=== PATIENT | male | born 1995 | race Caucasian/White ===

== ENCOUNTER 2022-01-26 09:24 | Observation (INO) ==
[2022-01-26] MEDS ORDERED: SODIUM CHLORIDE 0.9% 1000ML 2,000 ML IV ONE (09:50)
--- NOTE | 2022-01-26 09:50 | Emergency Department Note ---
Impression & Plan Elevated transaminase level, Hyperbilirubinemia, Nausea, History of COVID-19 ED Provider Note NAME: ANA CRISTINA MCGINNIS AGE: 26 SEX: M : 1995 ARRIVES VIA: Walk-In INFORMANT: Patient ED PROVIDER(S): Asim Paiz DO CHIEF COMPLAINT: Liver functions elevated HPI: Patient is a 26-year-old male who had COVID over 2 weeks ago. He was still feeling fairly rundown and consequently he followed up with [facility]. Still having the same symptoms he had with COVID which was chills, sweats, and myalgias. He symptoms have now abated several days ago. He returned yesterday and had blood work done and showed an elevated liver functions and consequently he was referred in. He denies any headache or fevers. No chest pain or shortness of breath. Cough has now abated. He denies any belly pain but admits to some nausea. No dysuria, urgency, or frequency. He notes he took 1 dose of Tylenol this morning but has not taken any for several days. He was not using excessive amount of Tylenol. No diarrhea. No other exacerbating or remitting factors. He did have a rash the other day which was itchy and red but abated fairly quickly. ROS: See above HPI for pertinent positives & negatives. A total of 10 systems reviewed and were otherwise negative. PAST MEDICAL HISTORY:See Below PAST SURGICAL HISTORY:See Below FAMILY HISTORY:See Below SOCIAL HISTORY:See Below HOME MEDICATIONS:See Below ALLERGIES:See Below VITALS:See Below PHYSICAL EXAMINATION: GENERAL: Sitting up in bed, alert, well appearing, well nourished, no distress, non-toxic EYE EXAM: normal conjunctiva. PERRL and EOM's grossly intact. OROPHARYNX: mucous membranes are moist LUNGS: Clear to auscultation. Normal chest wall mechanics HEART: no murmurs, S1 normal and S2 normal ABDOMEN: abdomen soft, non-tender, normo-active bowel sounds, no masses, no rebound or guarding. BACK: Back is symmetrical on inspection and there is no deformity, no midline tenderness, no CVA tenderness. SKIN: no rashes and no bruising UPPER EXTREMITIES: upper extremities are grossly normal. LOWER EXTREMITIES: No pitting edema. NEURO EXAM: Normal sensorium, cranial nerves II-XII grossly intact, normal s peech, no gross weakness of arms, no gross weakness of legs. MEDICAL DECISION MAKING: Patient is a 26-year-old male who presents the ER for elevated bilirubin and LFTs. He was referred in from [facility]. IV was established blood work was obtained. Show mild leukocytosis of 13,000. No significant anemia. BMP along with LFTs bilirubin was remarkable for an AST of 222, and ALT of 458, direct bili of 1.7 T bili of 2.6. Lipase was neg along with UA. Hooker was negative. COVID was negative. Ultrasound was unremarkable. Patient was updated bedside discussed with hospitalist Char for further evaluation. Triage Nursing notes reviewed. Limited review of prior medical records performed Vital Signs: reviewed and remarkable for HTN and tachy Differential diagnosis: Differential diagnoses includes but is not limited to gastritis, peptic ulcer disease, GERD, gallbladder disease, pancreatitis, small bowel obstruction, acute coronary syndrome, pericarditis, ischemic bowel, irritable bowel disease, irritable bowel syndrome, appendicitis, diverticulitis, malignancy, hernia, urinary tract infection, torsion, perforation, trauma, infectious. ER treatment provided: See below Diagnostics interpreted by me: ECG: none Cardiac Monitoring: An order was placed for continuous cardiac monitoring. The monitor shows a rate of 90 with sinus rhythm. Laboratory studies: As stated above and show below. Imaging studies: Ultrasound was unremarkable Consultation(s): Discussed with Char Jeff for further evaluation Procedures: none Critical Care: None Past Med/Surg History Social History Smoking Status: Never smoker Preferred Language: Lao Feels Safe at Home: Yes Allergies Allergies Allergy/AdvReac Type Severity Reaction Status Date / Time No Known Allergies Allergy Unverified 01/26/22 12:25 Home Meds Home Medications Medication Instructions Recorded Confirmed loratadine 10 mg tablet 10 mg PO DAILY 01/26/22 01/26/22 Results & Data (ED) Vital Signs Vital Signs - 24 hr 01/26/22 09:24 01/26/22 09:40 01/26/22 09:47 Temperature 36.3 C L Temperature Source Temporal Artery Scan Pulse Rate 103 H 84 Pulse Rate [Finger] 87 Respiratory Rate 18 20 18 Respiratory Effort / Characteristics Non-Labored Respiratory Depth Normal Blood Pressure 144/92 H Blood Pressure [Left Arm] 144/96 H Blood Pressure Mean 109 Blood Pressure Mean [Left Arm] 112 Pulse Oximetry 97 98 97 Oxygen Delivery Method Room Air Sepsis Recent Fever Within 48 Hours No Sepsis New/Unexplained Change in Mental Status No Sepsis Action Taken by Nursing No Action Required 01/26/22 12:19 Temperature Temperature Source Pulse Rate Pulse Rate [Finger] 95 H Respiratory Rate 18 Respiratory Effort / Characteristics Respiratory Depth Blood Pressure Blood Pressure [Left Arm] 144/94 H Blood Pressure Mean Blood Pressure Mean [Left Arm] 110 Pulse Oximetry 99 Oxygen Delivery Method Sepsis Recent Fever Within 48 Hours Sepsis New/Unexplained Change in Mental Status Sepsis Action Taken by Nursing Laboratory Data Result diagrams: 01/26/22 09:55 01/26/22 09:55 Lab Results 01/26/22 01/26/22 01/26/22 Range/Units 09:55 09:55 09:55 WBC 13.63 H (4.8-10.8) K/uL RBC 4.73 (4.7-6.1) M/uL Hgb 15.3 (14.0-18.0) g/dL Hct 43.1 (42-52) % MCV 91.1 (80-100) fL MCH 32.3 (25-34) pg MCHC 35.5 (32-36) g/dL RDW Std Deviation 44.0 (36.4-46.3) fL RDW Coeff of Minnie 13.1 (11.5-14.5) % Plt Count 155 (130-400) K/uL MPV 10.8 H (7.4-10.4) fL Neutrophils % (Manual) 15.5 % Lymphocytes % (Manual) 10.3 % Reactive Lymphs % (Man) 72.5 % Monocytes % (Manual) 1.7 % Neutrophils # (Manual) 2.11 (1.4-6.5) K/uL Total Absolute Neuts 2.11 (1.4-6.5) K/uL Lymphocytes # (Manual) 1.40 (1.2-3.4) K/uL Reactive Lymphs # 9.88 K/uL Total Abs Lymphocytes 11.29 H (1.2-3.4) K/uL Monocytes # (Manual) 0.23 (0.11-0.59) K/uL Sodium 140 (136-145) mmol/L Potassium 4.0 (3.5-5.1) mmol/L Chloride 105 (98-107) mmol/L Carbon Dioxide 27 (21-32) mmol/L Anion Gap 8 (3-11) BUN 8 (6-23) mg/dl Creatinine 0.81 (0.6-1.4) mg/dl Est Cr Clr Drug Dosing 150.4 ml/min Est GFR ( Amer) 141.2 ml/min Est GFR (Non-Af Amer) 121.8 ml/min BUN/Creatinine Ratio 9.9 L (10-20) Glucose 99 (70-99(Fasting)) mg/dl Calcium 9.6 (8.5-10.1) mg/dl Total Bilirubin 2.6 H (0.2-1.0) mg/dl Direct Bilirubin (0-0.2) mg/dl AST 222 H (13-39) U/L ALT 458 H (7-52) U/L Alkaline Phosphatase 165 H (34-104) U/L Total Creatine Kinase (30-223) U/L Total Protein 7.8 (6.0-8.3) gm/dl Albumin 4.2 (3.4-5.0) gm/dl Globulin 3.6 (2.5-4.0) gm/dl Albumin/Globulin Ratio 1.2 (0.9-2) Lipase 28 (11-82) U/L Urine Color Urine Appearance (Clear) Urine pH (4.5-7.5) Ur Specific [place] (1.000-1.030) Urine Protein (Negative) Urine Glucose (UA) (Negative) Urine Ketones (Negative) Urine Blood (Negative) Urine Nitrite (Negative) Urine Bilirubin (Negative) Urine Urobilinogen (Negative) Ur Leukocyte Esterase (Negative) Lyme Disease IgG Ab Negative (Negative) Lyme Disease IgM Ab Negative (Negative) Monoscreen Negative (Negative) SARS-CoV-2, RNA, NAAT (NEGATIVE) 01/26/22 01/26/22 01/26/22 Range/Units 09:55 11:05 12:01 WBC (4.8-10.8) K/uL RBC (4.7-6.1) M/uL Hgb (14.0-18.0) g/dL Hct (42-52) % MCV (80-100) fL MCH (25-34) pg MCHC (32-36) g/dL RDW Std Deviation (36.4-46.3) fL RDW Coeff of Minnie (11.5-14.5) % Plt Count (130-400) K/uL MPV (7.4-10.4) fL Neutrophils % (Manual) % Lymphocytes % (Manual) % Reactive Lymphs % (Man) % Monocytes % (Manual) % Neutrophils # (Manual) (1.4-6.5) K/uL Total Absolute Neuts (1.4-6.5) K/uL Lymphocytes # (Manual) (1.2-3.4) K/uL Reactive Lymphs # K/uL Total Abs Lymphocytes (1.2-3.4) K/uL Monocytes # (Manual) (0.11-0.59) K/uL Sodium (136-145) mmol/L Potassium (3.5-5.1) mmol/L Chloride (98-107) mmol/L Carbon Dioxide (21-32) mmol/L Anion Gap (3-11) BUN (6-23) mg/dl Creatinine (0.6-1.4) mg/dl Est Cr Clr Drug Dosing ml/min Est GFR ( Amer) ml/min Est GFR (Non-Af Amer) ml/min BUN/Creatinine Ratio (10-20) Glucose (70-99(Fasting)) mg/dl Calcium (8.5-10.1) mg/dl Total Bilirubin 2.6 H (0.2-1.0) mg/dl Direct Bilirubin 1.7 H (0-0.2) mg/dl AST (13-39) U/L ALT (7-52) U/L Alkaline Phosphatase (34-104) U/L Total Creatine Kinase 52 (30-223) U/L Total Protein (6.0-8.3) gm/dl Albumin (3.4-5.0) gm/dl Globulin (2.5-4.0) gm/dl Albumin/Globulin Ratio (0.9-2) Lipase (11-82) U/L Urine Color Dark Yellow Urine Appearance Clear (Clear) Urine pH 7.0 (4.5-7.5) Ur Specific [place] 1.007 (1.000-1.030) Urine Protein Negative (Negative) Urine Glucose (UA) Negative (Negative) Urine Ketones Negative (Negative) Urine Blood Negative (Negative) Urine Nitrite Negative (Negative) Urine Bilirubin Negative (Negative) Urine Urobilinogen Negative (Negative) Ur Leukocyte Esterase Negative (Negative) Lyme Disease IgG Ab (Negative) Lyme Disease IgM Ab (Negative) Monoscreen (Negative) SARS-CoV-2, RNA, NAAT NEGATIVE (NEGATIVE) Administered Medications Discontinued Medications Sodium Chloride (Nss 1000ml) 2,000 mls @ 999 mls/hr IV .Q2H1M ONE Stop: 01/26/22 11:50 Last Infusion: 01/26/22 12:47 Dose: 0 mls/hr Documented by: [id number] Admin: 01/26/22 09:55 Dose: 999 mls/hr Documented by: [id number] Imaging Data Radiologist's Impression: Liver Ultrasound 01/26/22 09:48 US liver HISTORY: 26 years-old Male transaminitis elevated LFTs COMPARISON: None TECHNIQUE: Multiple real-time sonographic images of the abdominal right upper quadrant were obtained assessing grayscale appearance and color flow FINDINGS: The visualized pancreas is unremarkable. Heterogeneous echogenicity of the liver with areas of mildly increased echogenicity. No hepatic mass or marginal nodularity. Mildly contracted gallbladder without cholelithiasis or pericholecystic fluid. Normal common bile duct, 5 mm. Imaged right kidney is unremarkable without hydronephrosis. IMPRESSION: 1. Findings suggestive of mild geographic hepatic steatosis. 2. Normal gallbladder. 3. No biliary ductal dilation. ACT 112: Negative or not required by law. The above report was generated using voice recognition software. It may contain grammatical, syntax or spelling errors. Electronically signed by: Zachery Long M.D. 01/26/2022 10:40 AM Discharge Plan Visit Data Chief Complaint: Abnormal Labs/Diagnostic Testing Stated Complaint: ELEVATED LIVER ENZYMES ED Provider: Asim Paiz Discharge Problem: Elevated transaminase level, Hyperbilirubinemia, Nausea, History of COVID-19
[2022-01-26 10:19] LABS: Hematocrit (blood only) 43.1 % (42-52); Hemoglobin 15.3 g/dL (14.0-18.0); Mean Corpuscular Hemoglobin 32.3 pg (25-34); Mean Corpuscular Hgb Conc 35.5 g/dL (32-36); Mean Corpuscular Volume 91.1 fL (80-100); Mean Platelet Volume 10.8 fL (7.4-10.4); Platelet Count 155 K/uL (130-400); RDW Coefficient of Variation 13.1 % (11.5-14.5); Red Blood Count 4.73 M/uL (4.7-6.1); White Blood Count 13.63 K/uL (4.8-10.8)
[2022-01-26 10:39] LABS: Monotest Negative (Negative)
--- NOTE | 2022-01-26 10:41 | Ultrasound Report ---
US liver HISTORY: 26 years-old Male transaminitis elevated LFTs COMPARISON: None TECHNIQUE: Multiple real-time sonographic images of the abdominal right upper quadrant were obtained assessing grayscale appearance and color flow FINDINGS: The visualized pancreas is unremarkable. Heterogeneous echogenicity of the liver with areas of mildly increased echogenicity. No hepatic mass or marginal nodularity. Mildly contracted gallbladder withou t cholelithiasis or pericholecystic fluid. Normal common bile duct, 5 mm. Imaged right kidney is unremarkable without hydronephrosis. IMPRESSION: 1. Findings suggestive of mild geographic hepatic steatosis. 2. Normal gallbladder. 3. No biliary ductal dilation. ACT 112: Negative or not required by law. The above report was generated using voice recognition software. It may contain grammatical, syntax o r spelling errors. Electronically signed by: Zachery Long M.D. 01/26/2022 10:40 AM
[2022-01-26 10:50] LABS: ALC (manual) 11.29 K/uL (1.2-3.4); ANC (manual) 2.11 K/uL (1.4-6.5); Lymphocytes % (manual) 10.3 %; Monocytes # (manual) 0.23 K/uL (0.11-0.59); Monocytes % (manual) 1.7 %; Neutrophils # (manual) 2.11 K/uL (1.4-6.5); Neutrophils % (manual) 15.5 %; Reactive Lymphocytes # (manual) 9.88 K/uL; Reactive Lymphocytes % (manual) 72.5 %
[2022-01-26 11:03] LABS: Lyme Ab IgG w/WB Rflx Negative (Negative); Lyme Ab IgM w/WB Rflx Negative (Negative)
[2022-01-26 11:17] LABS: Appearance Urine Clear (Clear); Bilirubin Urine Negative (Negative); Blood Urine Negative (Negative); Color Urine Dark Yellow; Glucose Urine UA Negative (Negative); Ketones Urine Negative (Negative); Leukocyte Esterase Urine Negative (Negative); Nitrite Urine Negative (Negative); Protein Urine Negative (Negative); Specific Gravity Urine 1.007 (1.000-1.030); Urobilinogen Urine Negative (Negative)
[2022-01-26 11:27] LABS: Albumin Globulin Ratio 1.2 (0.9-2); Albumin Level 4.2 gm/dl (3.4-5.0); BUN Creatinine Ratio 9.9 (10-20); Bilirubin,Total 2.6 mg/dl (0.2-1.0); Calcium 9.6 mg/dl (8.5-10.1); Creatinine Clr Calc Pharmacy 150.4 ml/min; Est GFR (African American) 141.2 ml/min; Est GFR (Non-African American) 121.8 ml/min; Globulin 3.6 gm/dl (2.5-4.0); Total Protein 7.8 gm/dl (6.0-8.3)
--- NOTE | 2022-01-26 13:20 | History & Physical Report ---
Date of Service January 26, 2022 Assessment & Plan (1) Elevated transaminase level: Plan: Uncertain cause with etiologies considered but not limited to recent covid-19 infection, ESTEVEZ, viral hepatitis, recent ischemic hepatopathy that is resolving after illness? biliary obstruction (less likely with normal MRCP). HIV pending with additional evidence of a pruritic rash on check and back present for the last week. Initially pruritis was described as all over, and cholestasis was suspected. However, patient now reports itching is localized to where the rash is present. LFTs were reportedly in the 400s yesterday at urgent care center and are now in the 200s so have trended down. CK is normal, patient denies OTC (although later said he was taking tums for nausea). Acute hepatitis panel pending, monospot is negative. GI consult requested for additional workup, recommendations. (2) Hyperbilirubinemia: Plan: see plan above. Trend in am. (3) Nausea: Plan: resolved with patient reporting a headache and consistent ibuprofen use throughout the week. (4) Pruritic rash: Plan: reports ongoing for the past week. It is unclear if there is an association with LFT elevation. Benadryl PRN. (5) History of COVID-19: Plan: Symptoms began 01/14 per his report and have mostly resolved at this point. He states that if it weren't for medical staff telling him to present to the ER for abnormal lab values, he would have thought he was improved. (6) DVT prophylaxis: Plan: Lovenox Full Code Dispo-likely to home in am after GI recommendations and additional workup is complete. Char Jeff DO [facility] Hospitalist History of Present Illness Chief Complaint: abnormal labs LFTs Primary Care Provider: NO PCP The patient is a 26 yo M who recently was sick with covid two weeks ago who went to the urgent care center because of still feleing run down. He reports persistent chills, sweats, and myalgias which improved about 4 days ago. Denies GALDAMEZ, fevers, no CP, no SOB, cough has resolved, +nausea, no abd pain, took 1 dose of tylenol this am but hasn't taken any for the last few days. Denies excessive use of tylenol. no diarrhea. +rash but this went away Allergies Allergy/AdvReac Type Severity Reaction Status Date / Time No Known Allergies Allergy Unverified 01/26/22 12:25 Home Medications Medication Instructions Recorded Confirmed Type loratadine 10 mg tablet 10 mg PO DAILY 01/26/22 01/26/22 History Past Med/Surg History Medical History History of COVID-19 Surgical History H/O wisdom tooth extraction Family History (Updated 01/26/22 @ 17:14 by Char Jeff DO) Mother Prediabetes Father Hypertension Social History (Updated 01/26/22 @ 17:15 by Char Jeff DO) Smoking Status: Never smoker Hx Alcohol Use: Yes Hx Substance Use: No Preferred Language: Luxembourgish Communication Ability: Effective Webmethods Consultant Required: No Beliefs That Will Affect Care: None Current Living Situation: Alone current occupational status: employed current occupation: management Other Information That Helps Us Care for You: No Feels Safe at Home: Yes Safety Concerns: Feels Safe At This Time Assistive Devices: Contacts and Glasses Assistive Devices Comment: glasses not here; contacts in Review of Systems Review of Systems: All systems were reviewed and negative except as indicated on HPI above. Results & Data Results & Data ([facility]) Vital Signs (Past 12 Hours) Vital Signs Temp Pulse Pulse Resp BP BP Pulse Ox 01/26/22 12:19 95 H 18 144/94 H 99 01/26/22 09:47 84 18 97 01/26/22 09:40 36.3 C L 103 H 20 144/92 H 98 01/26/22 09:24 87 18 144/96 H 97 Laboratory Results Short CBC 01/26/22 Range/Units 09:55 WBC 13.63 H (4.8-10.8) K/uL Hgb 15.3 (14.0-18.0) g/dL Hct 43.1 (42-52) % Plt Count 155 (130-400) K/uL BMP 01/26/22 09:55 Sodium 140 Potassium 4.0 Chloride 105 Carbon Dioxide 27 BUN 8 Creatinine 0.81 Glucose 99 Calcium 9.6 Liver Function 01/26/22 Range/Units 09:55 Total Bilirubin 2.6 H (0.2-1.0) mg/dl AST 222 H (13-39) U/L ALT 458 H (7-52) U/L Alkaline Phosphatase 165 H (34-104) U/L Albumin 4.2 (3.4-5.0) gm/dl Urine 01/26/22 Range/Units 11:05 Urine Color Dark Yellow Urine Appearance Clear (Clear) Urine pH 7.0 (4.5-7.5) Ur Specific [place] 1.007 (1.000-1.030) Urine Protein Negative (Negative) Urine Glucose (UA) Negative (Negative) Diagnostic Findings Liver Ultrasound 01/26/22 09:48 US liver HISTORY: 26 years-old Male transaminitis elevated LFTs COMPARISON: None TECHNIQUE: Multiple real-time sonographic images of the abdominal right upper quadrant were obtained assessing grayscale appearance and color flow FINDINGS: The visualized pancreas is unremarkable. Heterogeneous echogenicity of the liver with areas of mildly increased echogenicity. No hepatic mass or marginal nodularity. Mildly contracted gallbladder without cholelithiasis or pericholecystic fluid. Normal common bile duct, 5 mm. Imaged right kidney is unremarkable without hydronephrosis. IMPRESSION: 1. Findings suggestive of mild geographic hepatic steatosis. 2. Normal gallbladder. 3. No biliary ductal dilation. ACT 112: Negative or not required by law. The above report was generated using voice recognition software. It may contain grammatical, syntax or spelling errors. Electronically signed by: Zachery Long M.D. 01/26/2022 10:40 AM Code Status & VTE Plan VTE Prophylaxis Plan VTE Prophylaxis will be ordered: Yes
--- NOTE | 2022-01-26 13:43 | Communication Note ---
Date of Service: January 26, 2022 Obtain MRCP for further evaluation of elevated lft's Check acute hepatitis panel, covid if not done.
[2022-01-26 14:28] LABS: Bilirubin Direct 1.7 mg/dl (0-0.2); Bilirubin,Total 2.6 mg/dl (0.2-1.0)
--- NOTE | 2022-01-26 14:35 | Magnetic Resonance Report ---
MR MRCP HISTORY: 26 years-old Male rule out choledocholithiasis, nausea, elev LFTs acute nausea with elevate d LFTs COMPARISON: Ultrasound of same day TECHNIQUE: MRCP was obtained without the use of IV contrast. FINDINGS: The imaged lower chest is unremarkable. The liver is mildly enlarged. Trace perisplenic free fluid. T he spleen measures up to 13.8 cm in length. Unremarkable pancreas, adrenal glands, kidneys and gallbl adder. No cholelithiasis or gallbladder wall thickening. Normal caliber of the common bile duct, 3 mm . Normal caliber of the pancreatic duct. No choledocholithiasis. IMPRESSION: 1. No cholelithiasis, biliary ductal dilation or choledocholithiasis. 2. Mild hepatosplenomegaly. 3. Trace perisplenic free fluid. ACT 112: Negative or not required by law. The above report was generated using voice recognition software. It may contain grammatical, syntax o r spelling errors. Electronically signed by: Zachery Long M.D. 01/26/2022 2:33 PM
[2022-01-26] MEDS ORDERED: ACETAMINOPHEN 325 MG TAB PO PRN (15:55)
[2022-01-26] MEDS ORDERED: ONDANSETRON INJ 2 MG/ML 2 ML VIAL IV PRN (15:55)
[2022-01-26] MEDS ORDERED: POLYETHYLENE (MIRALAX) 17 GM PACK PO PRN (15:55)
[2022-01-26] MEDS ORDERED: diphenhydrAMINE Capsule 25 MG CAP PO PRN (17:17)
[2022-01-27 06:41] LABS: Prothrombin Time 10.2 Seconds (9.0-12.0)
[2022-01-27 06:57] LABS: BUN Creatinine Ratio 10.8 (10-20); Calcium 9.3 mg/dl (8.5-10.1); Creatinine Clr Calc Pharmacy 146.7 ml/min; Est GFR (African American) 139.8 ml/min; Est GFR (Non-African American) 120.6 ml/min; Potassium 3.8 mmol/L (3.5-5.1)
[2022-01-27 07:07] LABS: Albumin Globulin Ratio 1.1 (0.9-2); Albumin Level 3.9 gm/dl (3.4-5.0); Bilirubin,Total 2.1 mg/dl (0.2-1.0); Globulin 3.4 gm/dl (2.5-4.0); Total Protein 7.3 gm/dl (6.0-8.3)
[2022-01-27 07:31] LABS: HBSAG NON-REACTIVE (NON-REACTIVE); Hepatitis A Antibody IgM NON-REACTIVE (NON-REACTIVE); Hepatitis B Core Antibody IgM NON-REACTIVE (NON-REACTIVE)
[2022-01-27] MEDS ORDERED: ENOXAPARIN INJ 40 MG/0.4 ML SYR SQ SCH (09:00)
[2022-01-27] MEDS ORDERED: LORATADINE 10 MG TAB PO SCH (09:00)
--- NOTE | 2022-01-27 12:00 | Gastrointestinal Consultation ---
Date of Consultation January 27, 2022 Assessment & Plan (1) Elevated transaminase level: (2) Hyperbilirubinemia: Working diagnosis would be viral hepatitis - ? residual from recent covid infection. Acue hepatitis panel is negative, covid is negative, no signs of acute liver failure. Could send parvovirus, aih markers, iron studies including ferritin and ceruloplasmin. He is mentating fine. From a gi perpsective he is essentially asymptomatic, from [facility] - eating, moving his bowels. He could go home from a gi perspective with weekly lft's. He was advised to avoid tylenol or nsaids, ethanol. Given he lives further away, a video visit can be arranged for fup with gi - the office will contact him on Friday to schedule that. He was okay with that plan. History of Present Illness Reason for Consultation: elevated lft's Requesting Physician: Dr. Jeff Attending Physician: Gilberto Gonzalez MD History of Present Illness 26 yo male with no signficant pmhx. Had covid 2 weeks ago - asymptomatic. He was admitted for elevated lft's after having an outpatient check of lft's that were elevated. Only recent med use is an nsaid. Denies tylenol use, recent etoh use, marijuana use, with his partner of 3 months- no other new partners, no recent travel, no new medications or supplements, no recent sick contacts that he is aware of including young children. Mild ass nausea that has improved. Self limited rash reportedly yesterday. Dark urine. Otherwise normal bm's, no hematemesis, no hematochezia, no belly pain, no vomiting, no diarrhea. Pshx:None Medications as per [facility] All:NDKA Soc hx: non drinker, no smoker, with a partner of 3 months fam hx: unknown Allergies Allergy/AdvReac Type Severity Reaction Status Date / Time No Known Allergies Allergy Unverified 01/26/22 12:25 Home Medications Medication Instructions Recorded Confirmed Type loratadine 10 mg tablet 10 mg PO DAILY 01/26/22 01/26/22 History Patient History Medical History History of COVID-19 Surgical History H/O wisdom tooth extraction Family History (Updated 01/26/22 @ 17:14 by Char Jeff DO) Mother Prediabetes Father Hypertension Social History (Updated 01/26/22 @ 17:15 by Char Jeff DO) Smoking Status: Never smoker Hx Alcohol Use: Yes Hx Substance Use: No Preferred Language: Slovak Communication Ability: Effective Safety And Skill Based Pay Manager Required: No Beliefs That Will Affect Care: None Current Living Situation: Alone current occupational status: employed current occupation: management Other Information That Helps Us Care for You: No Feels Safe at Home: Yes Safety Concerns: Feels Safe At This Time Assistive Devices: Contacts and Glasses Assistive Devices Comment: glasses not here; contacts in Review of Systems Review of Systems: All systems reviewed & are unremarkable except as noted in HPI & below Physical Exam Physical Exam: Well nourished male, no overt scleral icterus noted Constitutional: WD/WN, vitals as above Eyes: PERRL, conjunctivae normal, anicteric sclerae Gastrointestinal (Abdomen): normal bowel sounds, soft, nontender, no hepatosplenomegaly Skin: no visible rash noted on face, back, chest or abdomen or extremities, 2 maybe ingrown hair follicles on his mid chest Neurologic: PERRL, EOMI, accommodation nl, no face palsy, no dysarthria Results & Data ([facility]) Vital Signs (Past 12 Hours) Vital Signs Temp Pulse Resp BP Pulse Ox 01/27/22 07:08 36.9 C 81 16 132/81 97 Laboratory Results Labs reviewed TB down today to 2.1 AST 288 ALT 526 AP 135 INR normal MRCP reviewed- no biliary dilation, hepatomegaly
--- NOTE | 2022-01-27 15:46 | Discharge Summary ---
Date of Service January 27, 2022 Admission HPI Per Admitting Provider The patient is a 26 yo M who recently was sick with covid two weeks ago who went to the urgent care center because of still feleing run down. He reports persistent chills, sweats, and myalgias which improved about 4 days ago. Denies GALDAMEZ, fevers, no CP, no SOB, cough has resolved, +nausea, no abd pain, took 1 dose of tylenol this am but hasn't taken any for the last few days. Denies excessive use of tylenol. no diarrhea. +rash but this went away Admission Exam Per Admitting Provider No admission exam available Principal Diagnosis Abnormal LFTs Discharge Exam General: Well developed, lying comfortably in bed, not in distress, on room air HEENT: EOMI, ADAM, MMM Chest: Clear breath sounds bilaterally, no wheezes or crackles CVS: Regular rate and rhythm, normal heart sounds, no murmur Abdomen: Soft, non tender, not distended, normal bowel sounds Neuro: Awake, alert, orientedx4, conversing well, non focal Extremities: No cyanosis, clubbing or edema Skin: no rash Discharge Data Allergies Allergy/AdvReac Type Severity Reaction Status Date / Time No Known Allergies Allergy Unverified 01/26/22 12:25 Consultations 01/26/22 12:14 ED Decision to Admit Stat 01/26/22 13:23 Consult Gastroenterology Routine Laboratory Results WBC 13.63 K/uL (4.8-10.8) H 01/26/22 09:55 RBC 4.73 M/uL (4.7-6.1) 01/26/22 09:55 Hgb 15.3 g/dL (14.0-18.0) 01/26/22 09:55 Hct 43.1 % (42-52) 01/26/22 09:55 MCV 91.1 fL (80-100) 01/26/22 09:55 MCH 32.3 pg (25-34) 01/26/22 09:55 MCHC 35.5 g/dL (32-36) 01/26/22 09:55 RDW Std Deviation 44.0 fL (36.4-46.3) 01/26/22 09:55 RDW Coeff of Minnie 13.1 % (11.5-14.5) 01/26/22 09:55 Plt Count 155 K/uL (130-400) 01/26/22 09:55 MPV 10.8 fL (7.4-10.4) H 01/26/22 09:55 Neutrophils % (Manual) 15.5 % 01/26/22 09:55 Lymphocytes % (Manual) 10.3 % 01/26/22 09:55 Reactive Lymphs % (Man) 72.5 % 01/26/22 09:55 Monocytes % (Manual) 1.7 % 01/26/22 09:55 Neutrophils # (Manual) 2.11 K/uL (1.4-6.5) 01/26/22 09:55 Total Absolute Neuts 2.11 K/uL (1.4-6.5) 01/26/22 09:55 Lymphocytes # (Manual) 1.40 K/uL (1.2-3.4) 01/26/22 09:55 Reactive Lymphs # 9.88 K/uL 01/26/22 09:55 Total Abs Lymphocytes 11.29 K/uL (1.2-3.4) H 01/26/22 09:55 Monocytes # (Manual) 0.23 K/uL (0.11-0.59) 01/26/22 09:55 PT 10.2 Seconds (9.0-12.0) 01/27/22 05:56 INR 1.0 (0.9-1.1) 01/27/22 05:56 Sodium 138 mmol/L (136-145) 01/27/22 05:56 Potassium 3.8 mmol/L (3.5-5.1) 01/27/22 05:56 Chloride 104 mmol/L (98-107) 01/27/22 05:56 Carbon Dioxide 27 mmol/L (21-32) 01/27/22 05:56 Anion Gap 7 (3-11) 01/27/22 05:56 BUN 9 mg/dl (6-23) 01/27/22 05:56 Creatinine 0.83 mg/dl (0.6-1.4) 01/27/22 05:56 Est Cr Clr Drug Dosing 146.7 ml/min 01/27/22 05:56 Est GFR ( Amer) 139.8 ml/min 01/27/22 05:56 Est GFR (Non-Af Amer) 120.6 ml/min 01/27/22 05:56 BUN/Creatinine Ratio 10.8 (10-20) 01/27/22 05:56 Glucose 88 mg/dl (70-99(Fasting)) 01/27/22 05:56 Calcium 9.3 mg/dl (8.5-10.1) 01/27/22 05:56 Total Bilirubin 2.1 mg/dl (0.2-1.0) H 01/27/22 05:56 Direct Bilirubin 1.7 mg/dl (0-0.2) H 01/26/22 09:55 AST 288 U/L (13-39) H 01/27/22 05:56 ALT 526 U/L (7-52) H 01/27/22 05:56 Alkaline Phosphatase 145 U/L (34-104) H 01/27/22 05:56 Total Creatine Kinase 52 U/L (30-223) 01/26/22 09:55 Total Protein 7.3 gm/dl (6.0-8.3) 01/27/22 05:56 Albumin 3.9 gm/dl (3.4-5.0) 01/27/22 05:56 Globulin 3.4 gm/dl (2.5-4.0) 01/27/22 05:56 Albumin/Globulin Ratio 1.1 (0.9-2) 01/27/22 05:56 Lipase 28 U/L (11-82) 01/26/22 09:55 Urine Color Dark Yellow 01/26/22 11:05 Urine Appearance Clear (Clear) 01/26/22 11:05 Urine pH 7.0 (4.5-7.5) 01/26/22 11:05 Ur Specific [place] 1.007 (1.000-1.030) 01/26/22 11:05 Urine Protein Negative (Negative) 01/26/22 11:05 Urine Glucose (UA) Negative (Negative) 01/26/22 11:05 Urine Ketones Negative (Negative) 01/26/22 11:05 Urine Blood Negative (Negative) 01/26/22 11:05 Urine Nitrite Negative (Negative) 01/26/22 11:05 Urine Bilirubin Negative (Negative) 01/26/22 11:05 Urine Urobilinogen Negative (Negative) 01/26/22 11:05 Ur Leukocyte Esterase Negative (Negative) 01/26/22 11:05 Lyme Disease IgG Ab Negative (Negative) 01/26/22 09:55 Lyme Disease IgM Ab Negative (Negative) 01/26/22 09:55 Hepatitis A IgM Ab NON-REACTIVE (NON-REACTIVE) 01/26/22 09:55 Hep Bs Antigen NON-REACTIVE (NON-REACTIVE) 01/26/22 09:55 Hep Bs Ag Confirmation TNP 01/26/22 09:55 Hep B Core IgM Ab NON-REACTIVE (NON-REACTIVE) 01/26/22 09:55 Hepatitis C Ab (EIA) NON-REACTIVE (NON-REACTIVE) 01/26/22 09:55 Hep C Ab Signal/Cutoff 0.03 (<1.00) 01/26/22 09:55 Monoscreen Negative (Negative) 01/26/22 09:55 SARS-CoV-2, RNA, NAAT NEGATIVE (NEGATIVE) 01/26/22 12:01 Impressions Liver Ultrasound 01/26/22 09:48 US liver HISTORY: 26 years-old Male transaminitis elevated LFTs COMPARISON: None TECHNIQUE: Multiple real-time sonographic images of the abdominal right upper quadrant were obtained assessing grayscale appearance and color flow FINDINGS: The visualized pancreas is unremarkable. Heterogeneous echogenicity of the liver with areas of mildly increased echogenicity. No hepatic mass or marginal no dularity. Mildly contracted gallbladder without cholelithiasis or pericholecystic fluid. Normal common bile duct, 5 mm. Imaged right kidney is unremarkable without hydronephrosis. IMPRESSION: 1. Findings suggestive of mild geographic hepatic steatosis. 2. Normal gallbladder. 3. No biliary ductal dilation. ACT 112: Negative or not required by law. The above report was generated using voice recognition software. It may contain grammatical, syntax or spelling errors. Electronically signed by: Zachery Long M.D. 01/26/2022 10:40 AM Cholangiopancreatography MRI 01/26/22 13:18 MR MRCP HISTORY: 26 years-old Male rule out choledocholithiasis, nausea, elev LFTs acute nausea with elevated LFTs COMPARISON: Ultrasound of same day TECHNIQUE: MRCP was obtained without the use of IV contrast. FINDINGS: The imaged lower chest is unremarkable. The liver is mildly enlarged. Trace perisplenic free fluid. The spleen measures up to 13.8 cm in length. Unremarkable pancreas, adrenal glands, kidneys and gallbladder. No cholelithiasis or gallbladder wall thickening. Normal caliber of the common bile duct, 3 mm. Normal caliber of the pancreatic duct. No choledocholithiasis. IMPRESSION: 1. No cholelithiasis, biliary ductal dilation or choledocholithiasis. 2. Mild hepatosplenomegaly. 3. Trace perisplenic free fluid. ACT 112: Negative or not required by law. The above report was generated using voice recognition software. It may contain grammatical, syntax or spelling errors. Electronically signed by: Zachery Long M.D. 01/26/2022 2:33 PM Ordered Studies 01/26/22 09:48 US liver Stat 01/26/22 13:18 MR MRCP Routine Laboratory Results WBC 13.63 K/uL (4.8-10.8) H 01/26/22 09:55 RBC 4.73 M/uL (4.7-6.1) 01/26/22 09:55 Hgb 15.3 g/dL (14.0-18.0) 01/26/22 09:55 Hct 43.1 % (42-52) 01/26/22 09:55 MCV 91.1 fL (80-100) 01/26/22 09:55 MCH 32.3 pg (25-34) 01/26/22 09:55 MCHC 35.5 g/dL (32-36) 01/26/22 09:55 RDW Std Deviation 44.0 fL (36.4-46.3) 01/26/22 09:55 RDW Coeff of Minnie 13.1 % (11.5-14.5) 01/26/22 09:55 Plt Count 155 K/uL (130-400) 01/26/22 09:55 MPV 10.8 fL (7.4-10.4) H 01/26/22 09:55 Neutrophils % (Manual) 15.5 % 01/26/22 09:55 Lymphocytes % (Manual) 10.3 % 01/26/22 09:55 Reactive Lymphs % (Man) 72.5 % 01/26/22 09:55 Monocytes % (Manual) 1.7 % 01/26/22 09:55 Neutrophils # (Manual) 2.11 K/uL (1.4-6.5) 01/26/22 09:55 Total Absolute Neuts 2.11 K/uL (1.4-6.5) 01/26/22 09:55 Lymphocytes # (Manual) 1.40 K/uL (1.2-3.4) 01/26/22 09:55 Reactive Lymphs # 9.88 K/uL 01/26/22 09:55 Total Abs Lymphocytes 11.29 K/uL (1.2-3.4) H 01/26/22 09:55 Monocytes # (Manual) 0.23 K/uL (0.11-0.59) 01/26/22 09:55 PT 10.2 Seconds (9.0-12.0) 01/27/22 05:56 INR 1.0 (0.9-1.1) 01/27/22 05:56 Sodium 138 mmol/L (136-145) 01/27/22 05:56 Potassium 3.8 mmol/L (3.5-5.1) 01/27/22 05:56 Chloride 104 mmol/L (98-107) 01/27/22 05:56 Carbon Dioxide 27 mmol/L (21-32) 01/27/22 05:56 Anion Gap 7 (3-11) 01/27/22 05:56 BUN 9 mg/dl (6-23) 01/27/22 05:56 Creatinine 0.83 mg/dl (0.6-1.4) 01/27/22 05:56 Est Cr Clr Drug Dosing 146.7 ml/min 01/27/22 05:56 Est GFR ( Amer) 139.8 ml/min 01/27/22 05:56 Est GFR (Non-Af Amer) 120.6 ml/min 01/27/22 05:56 BUN/Creatinine Ratio 10.8 (10-20) 01/27/22 05:56 Glucose 88 mg/dl (70-99(Fasting)) 01/27/22 05:56 Calcium 9.3 mg/dl (8.5-10.1) 01/27/22 05:56 Total Bilirubin 2.1 mg/dl (0.2-1.0) H 01/27/22 05:56 Direct Bilirubin 1.7 mg/dl (0-0.2) H 01/26/22 09:55 AST 288 U/L (13-39) H 01/27/22 05:56 ALT 526 U/L (7-52) H 01/27/22 05:56 Alkaline Phosphatase 145 U/L (34-104) H 01/27/22 05:56 Total Creatine Kinase 52 U/L (30-223) 01/26/22 09:55 Total Protein 7.3 gm/dl (6.0-8.3) 01/27/22 05:56 Albumin 3.9 gm/dl (3.4-5.0) 01/27/22 05:56 Globulin 3.4 gm/dl (2.5-4.0) 01/27/22 05:56 Albumin/Globulin Ratio 1.1 (0.9-2) 01/27/22 05:56 Lipase 28 U/L (11-82) 01/26/22 09:55 Urine Color Dark Yellow 01/26/22 11:05 Urine Appearance Clear (Clear) 01/26/22 11:05 Urine pH 7.0 (4.5-7.5) 01/26/22 11:05 Ur Specific [place] 1.007 (1.000-1.030) 01/26/22 11:05 Urine Protein Negative (Negative) 01/26/22 11:05 Urine Glucose (UA) Negative (Negative) 01/26/22 11:05 Urine Ketones Negative (Negative) 01/26/22 11:05 Urine Blood Negative (Negative) 01/26/22 11:05 Urine Nitrite Negative (Negative) 01/26/22 11:05 Urine Bilirubin Negative (Negative) 01/26/22 11:05 Urine Urobilinogen Negative (Negative) 01/26/22 11:05 Ur Leukocyte Esterase Negative (Negative) 01/26/22 11:05 Lyme Disease IgG Ab Negative (Negative) 01/26/22 09:55 Lyme Disease IgM Ab Negative (Negative) 01/26/22 09:55 Hepatitis A IgM Ab NON-REACTIVE (NON-REACTIVE) 01/26/22 09:55 Hep Bs Antigen NON-REACTIVE (NON-REACTIVE) 01/26/22 09:55 Hep Bs Ag Confirmation TNP 01/26/22 09:55 Hep B Core IgM Ab NON-REACTIVE (NON-REACTIVE) 01/26/22 09:55 Hepatitis C Ab (EIA) NON-REACTIVE (NON-REACTIVE) 01/26/22 09:55 Hep C Ab Signal/Cutoff 0.03 (<1.00) 01/26/22 09:55 Monoscreen Negative (Negative) 01/26/22 09:55 SARS-CoV-2, RNA, NAAT NEGATIVE (NEGATIVE) 01/26/22 12:01 Impressions Liver Ultrasound 01/26/22 09:48 US liver HISTORY: 26 years-old Male transaminitis elevated LFTs COMPARISON: None TECHNIQUE: Multiple real-time sonographic images of the abdominal right upper quadrant were obtained assessing grayscale appearance and color flow FINDINGS: The visualized pancreas is unremarkable. Heterogeneous echogenicity of the liver with areas of mildly increased echogenicity. No hepatic mass or marginal nodularity. Mildly contracted gallbladder without cholelithiasis or pericholecystic fluid. Normal common bile duct, 5 mm. Imaged right kidney is unremarkable without hydronephrosis. IMPRESSION: 1. Findings suggestive of mild geographic hepatic steatosis. 2. Normal gallbladder. 3. No biliary ductal dilation. ACT 112: Negative or not required by law. The above report was generated using voice recognition software. It may contain grammatical, syntax or spelling errors. Electronically signed by: Zachery Long M.D. 01/26/2022 10:40 AM Cholangiopancreatography MRI 01/26/22 13:18 MR MRCP HISTORY: 26 years-old Male rule out choledocholithiasis, nausea, elev LFTs acute nausea with elevated LFTs COMPARISON: Ultrasound of same day TECHNIQUE: MRCP was obtained without the use of IV contrast. FINDINGS: The imaged lower chest is unremarkable. The liver is mildly enlarged. Trace perisplenic free fluid. The spleen measures up to 13.8 cm in length. Unremarkable pancreas, adrenal glands, kidneys and gallbladder. No cholelithiasis or gallbladder wall thickening. Normal caliber of the common bile duct, 3 mm. Normal caliber of the pancreatic duct. No choledocholithiasis. IMPRESSION: 1. No cholelithiasis, biliary ductal dilation or choledocholithiasis. 2. Mild hepatosplenomegaly. 3. Trace perisplenic free fluid. ACT 112: Negative or not required by law. The above report was generated using voice recognition software. It may contain grammatical, syntax or spelling errors. Electronically signed by: Zachery Long M.D. 01/26/2022 2:33 PM Hospital Course (1) Elevated transaminase level: (2) Hyperbilirubinemia: (3) History of COVID-19: Patient presented to the ED for evaluation of his abnormal LFTs which were done as OP. His LFTs were already improving here from his OP lab- it was relatively stable today compared to yesterday. He feels fine. He is asymptomatic. No N/V/abd pain, fever, chills, pruritus, rash. He doesn't drink alcohol or use drugs. His hepatitis panel were negative, monospot negative, INR normal, covid negative, MRCP and liver ultrasound negative except for mild hepatic steatosis and mild hepatosplenomegaly. HIV test still pending. Seen by GI and cleared for discharge home with OP weekly LFTs- they will follow up with him on Friday and order weekly LFTs- if doesn't improve, they will consider further work up. Recommended to avoid tylenol, NSAIDs and alcohol. It is likely some viral illness ?covid related vs others and is in recovery phase. Recommended to follow up regarding the pending HIV test with PCP or GI. He is comfortable and stable for discharge and anxious to go home. Total Time Total Time Spent Total Time Spent (In Minutes): 25 Discharge Plan Discharge Items Patient Disposition: Home - Self-Care Reason For Visit: ELEVATED LIVER ENZYMES Discharge Diagnosis: Elevated LFTs Activity: Resume your previous activity Non-emergency contact: Primary Care Provider Call non-emergency contact if: your symptoms worsen, your pain is concerning for you and you have a fever Follow-up/Referrals: Nichelle Collazo MD [Hospitalist] - (OFFICE WILL CALL PATIENT 01/28/22 TO SCHEDULE APPOINTMENT) [facility] [Primary Care Provider] - Diet: Regular Addtl Attending Provider Instructions: Your abnormal liver test could be the residual effect from recent viral infection- they are relatively stable to improving Avoid tylenol, alcohol or over the counter pain medications like advil or naproxen. Please follow with GI and get weekly blood test for liver enzymes to make sure they are coming down If they don't improve, GI will likely do more blood tests to rule out other causes. Follow up on the HIV test which is still pending If your symptoms worsen or you have nausea, vomiting, abdominal pain, fever or chills, please come back to the emergency. Pending Studies at Discharge: Yes (HIV test) Stand-Alone Forms: [facility], Smoking Cessation Medications and DC Order Prescriptions: Continued loratadine 10 mg Tablet 10 mg PO DAILY RF: 0 Discharge Orders: Discharge Order (Routine); Ordered 01/27/22 Ordered By: Gilberto Gonzalez Admission Data Admit Date/Time: 01/26/22 13:12 Attending Provider: Gilberto Gonzalez Admit Provider: Char Jeff Primary Care Provider: PCP,NO Other Providers: Nichelle Collazo ; Char Jeff Other Interventions: Discharge Summary Assessment (RN) Last Done: 01/27/22 13:33
== END 2022-01-27 15:13 | disposition home or self-care (01) ==
LOC: ED 09:24 → 3E 09:24 → SUATTDRO 13:12 → 3E 16:16